=== PATIENT | male | born 1985 ===

== ENCOUNTER 2018-09-08 17:22 | Emergency (ER) | payer BC ==
--- NOTE | 2018-09-08 19:23 | ED PDOC ---
HPI: Headache Time Seen by Provider: 09/08/18 17:46 Chief Complaint (Nursing): Headache Chief Complaint (Provider): Headache, daily for 1 month History Per: Patient History/Exam Limitations: no limitations Onset/Duration Of Symptoms: Days Current Symptoms Are (Timing): Still Present Additional Complaint(s): 33 yo male with no medical problems presents for evaluation of headache. Pt reports throbbing pain in posterior head. Pt states sometimes he wakes up with headaches. PT denies similar in the past and states it is not the worst pain of his life but that he has never had daily headaches for this period of time. Pt denies N/V. Pt denies visual abnormalities. Past Medical History Reviewed: Historical Data, Nursing Documentation, Vital Signs Vital Signs: Last Vital Signs Temp 98.0 F 09/08/18 17:30 Pulse 85 09/08/18 17:30 Resp BP 139/87 09/08/18 17:30 Pulse Ox 98 09/08/18 17:30 Primary Care Provider: FAMILY PROVIDER,NO - Medical History PMH: No Chronic Diseases - Surgical History Surgical History: No Surg Hx - Family History Family History: States: No Known Family Hx - Living Arrangements Living Arrangements: With Family - Allergies Allergies/Adverse Reactions: Allergies Allergy/AdvReac Type Severity Reaction Status Date / Time No Known Allergies Allergy Verified 09/08/18 17:30 Review of Systems ROS Statement: Except As Marked, All Systems Reviewed And Found Negative Constitutional: Negative for: Fever, Chills Cardiovascular: Negative for: Chest Pain, Palpitations Respiratory: Negative for: Cough, Shortness of Breath Gastrointestinal: Negative for: Nausea, Vomiting, Abdominal Pain Neurological: Positive for: Headache. Negative for: Confusion, Seizures, Altered Mental Status, Dizziness Physical Exam - Reviewed Nursing Documentation Reviewed: Yes Vital Signs Reviewed: Yes - Physical Exam Appears: Positive for: Well, Non-toxic, No Acute Distress Head Exam: Positive for: ATRAUMATIC, NORMAL INSPECTION, NORMOCEPHALIC Skin: Positive for: Normal Color, Warm, DRY Eye Exam: Positive for: Normal appearance ENT: Positive for: Normal ENT Inspection Neck: Positive for: Normal, Painless ROM Cardiovascular/Chest: Positive for: Regular Rate, Rhythm Respiratory: Positive for: CNT, Normal Breath Sounds Gastrointestinal/Abdominal: Positive for: Normal Exam, Soft Back: Positive for: Normal Inspection Extremity: Positive for: Normal ROM Neurological/Psych: Positive for: Awake, Alert, Normal Tone - ECG O2 Sat by Pulse Oximetry: 98 Medical Decision Making Medical Decision Making: Time: 1937 --CT head FINDINGS: BRAIN No acute intraparenchymal hemorrhage. No mass lesion. No CT evidence for acute territorial infarct. No midline shift or extra-axial collections. VENTRICLES: No hydrocephalus. ORBITS: The orbits are unremarkable. SINUSES AND MASTOIDS: The paranasal sinuses and mastoid air cells are clear. BONES: No fracture. SOFT TISSUES: Unremarkable. IMPRESSION: No acute intracranial abnormality. Disposition - Clinical Impression Clinical Impression: Headache - Patient ED Disposition Is Patient to be Admitted: No Counseled Patient/Family Regarding: Diagnosis, Need For Followup - Disposition Referrals: formerly [facility] [Outside] Gage Cleary MD [Staff Provider] - Disposition: Routine/Home Disposition Time: 21:06 Condition: STABLE Instructions: Headache, Adult Forms: [facility] (Frisian) Print Language: SAMI
[2018-09-08 20:54] VITALS: BP 128/78; PULSE 78; RESP 18; TEMP 98.2
[2018-09-08 21:06] VITALS: O2SAT 98
--- NOTE | 2018-09-09 10:39 | CT ---
Date of service: 09/08/2018 PROCEDURE: CT HEAD WITHOUT CONTRAST. HISTORY: headache, when waking up COMPARISON: None available. TECHNIQUE: Axial computed tomography images were obtained through the head/brain without intravenous contrast. Radiation dose: Total exam DLP = 816.44 mGy-cm. This CT exam was performed using one or more of the following dose reduction techniques: Automated exposure control, adjustment of the mA and/or kV according to patient size, and/or use of iterative reconstruction technique. FINDINGS: HEMORRHAGE: No intracranial hemorrhage. BRAIN: No mass effect or edema. No atrophy or chronic microvascular ischemic changes. VENTRICLES: Unremarkable. No hydrocephalus. CALVARIUM: Unremarkable. PARANASAL SINUSES: Unremarkable as visualized. No significant inflammatory changes. MASTOID AIR CELLS: Unremarkable as visualized. No inflammatory changes. OTHER FINDINGS: None. IMPRESSION: Normal CT of the Head.
== END 2018-09-08 21:38 | disposition home or self-care (01) ==
LOC: H.ER 17:22
DX: R51 Headache (principal)